=== PATIENT | male | born 1940 | race Caucasian/White ===

== ENCOUNTER → 2018-03-12 | Outpatient (REF) | payer MEDICARE, BC ==
[~2018-03-12] MED LIST: ASPI-1471 PO; BIMOD OP; CELE-1 PO; DORZ10DR24 OP; EZE10 PO; METF-450 PO; PER PO; SIMV-49 PO; TRA50 PO
== END ==
LOC: ZZSENDIN 13:48
PROVIDERS: ATTEND Urology
DX: R97.20 Elevated prostate specific antigen [PSA] (principal)
CPT/HCPCS: 81313

== ENCOUNTER → 2018-04-15 | Outpatient (REF) | payer MEDICARE, BC | LOC: ZZSENDIN 12:00 | PROVIDERS: ATTEND Urology | DX: R97.20 Elevated prostate specific antigen [PSA] (principal) | CPT/HCPCS: 88305; 88344 ==

== ENCOUNTER → 2018-09-18 | Outpatient (CLI) | payer MEDICARE, BC ==
--- NOTE | 2018-09-18 12:34 | RADIOLOGY IMAGING REPORT ---
FACILITY: [facility] PATIENT NAME: Frank Junior : 1940 MR: [id number] V: [id number] EXAM DATE: ORDERING PHYSICIAN: RADHA CHENG TECHNOLOGIST: Location: [facility] Patient: Frank Junior : 1940 Visit/Account:[id number] Date of Sevice: 09/18/2018 Technique: CHEST PA LAT HISTORY: Bronchitis COMPARISON: None available Findings: The lungs are clear. No pleural effusion or pneumothorax. The cardiomediastinal silhouett e is unremarkable. Impression: 1. No acute cardiopulmonary process. Report Dictated By: Kyrie Flynn DO at 09/18/2018 12:28 PM Report E-Signed By: Kyrie Flynn DO at 09/18/2018 12:29 PM [id number]
== END ==
LOC: RAD 11:39
PROVIDERS: ATTEND Family Medicine
DX: J20.9 Acute bronchitis, unspecified (principal)
CPT/HCPCS: 71046